=== PATIENT | male | born 1975 | race African-American/Black ===

== ENCOUNTER 2017-10-14 12:12 | Emergency (ER) | payer BC ==
[~2017-10-14] VITALS: Ht 172.7 cm; Wt 118.0 kg
[2017-10-14 12:33] VITALS: BP 170/109
== END 2017-10-14 15:16 | disposition home or self-care (01) ==
LOC: ER 12:52
DX: S83.91XA Sprain of unspecified site of right knee, initial encounter (principal); E11.9 Type 2 diabetes mellitus without complications; R03.0 Elevated blood-pressure reading, without diagnosis of hypertension; F17.210 Nicotine dependence, cigarettes, uncomplicated; X58.XXXA Exposure to other specified factors, initial encounter; Y93.89 Activity, other specified; Y92.89 Other specified places as the place of occurrence of the external cause
CPT/HCPCS: 73562; 99284; Z7610

== ENCOUNTER 2018-12-10 12:57 | Emergency (ER) | payer BC ==
[~2018-12-10] VITALS: Ht 172.7 cm; Wt 115.5 kg
[2018-12-10] MEDS ORDERED: IBUPROFEN 800MG TABLET PO ONE (15:00)
[2018-12-10] MEDS ORDERED: CLONIDINE 0.2MG TABLET PO ONE (15:00)
[2018-12-10 16:02] LABS: BASOPHILS % 0.5 % (0.0-2.0); EOSINOPHILS % 0.8 % (0.0-5.0); HEMATOCRIT. 44.1 % (42.0-52.0); HEMOGLOBIN. 14.8 g/dL (14.0-18.0); LYMPHOCYTES % 15.5 % (20.0-50.0); MEAN CORPUSCULAR HEMOGLOBIN 32.7 pg (28.0-32.0); MEAN CORPUSCULAR VOLUME 97.2 fL (80.0-94.0); MEAN PLATELET VOLUME 8.3 fl (7.4-10.4); MONOCYTES % 7.2 % (2.0-8.0); PLATELET 231 x1000/uL (130-400); RED BLOOD CELL COUNT 4.54 mill/uL (4.7-6.1); RED CELL DISTRIBUTION WIDTH 12.3 % (11.6-14.6)
[2018-12-10 16:08] LABS: CHLORIDE 102 mEq/L (98-107)
[2018-12-10 16:15] LABS: LDL CHOLESTEROL 84 mg/dL (5-100)
[2018-12-10 16:16] LABS: HDL CHOLESTEROL 50 mg/dL (40-59)
[2018-12-10] MEDS ORDERED: LOSARTAN POTASSIUM 50 MG TABLET PO ONE (17:00)
[2018-12-10 18:55] VITALS: BP 148/72
== END 2018-12-10 18:59 | disposition home or self-care (01) ==
LOC: ER 12:57
DX: M25.562 Pain in left knee (principal); I10 Essential (primary) hypertension; M17.12 Unilateral primary osteoarthritis, left knee; I51.7 Cardiomegaly; R51 Headache; F12.10 Cannabis abuse, uncomplicated; F17.200 Nicotine dependence, unspecified, uncomplicated
CPT/HCPCS: 36415; 71045; 73560; 80061; 84484; 93005; 93970; 99284